=== PATIENT | male | born 2000 | race Caucasian/White ===

== ENCOUNTER 2020-04-12 14:02 | Emergency (ER) | payer OTHER ==
[~2020-04-12] VITALS: Ht 182.9 cm; Wt 106.6 kg
[~2020-04-12 14:02] MED LIST: GILTUSS; NAPR500T14 PO
[2020-04-12] MEDS ORDERED: ZITHROMAX500 MG PO ×2 (16:47→16:48)
[2020-04-12] MEDS ORDERED: TUSICOF CAPLET1 EACH PO ×2 (16:47→16:48)
== END 2020-04-12 17:31 | disposition home or self-care (01) ==
LOC: ER 14:02 → EMR PED 14:10
DX: R51.9 Headache, unspecified (principal); Z20.828 Contact with and (suspected) exposure to other viral communicable diseases

== ENCOUNTER 2020-04-20 09:25 | Day surgery (SDC) | payer OTHER ==
[~2020-04-20 09:25] MED LIST changes: +TUSICOF CAPLET1 EACH PO; +ZITHROMAX500 MG PO
== END 2020-04-20 20:49 | disposition home or self-care (01) ==
LOC: CIR.AMB 09:25
PROVIDERS: ATTEND Colon & Rectal Surgery
DX: K60.1 Chronic anal fissure (principal); Z20.828 Contact with and (suspected) exposure to other viral communicable diseases

== ENCOUNTER 2020-09-13 13:21 | Outpatient (CLI) | payer OTHER | END 2020-09-13 13:25 | disposition home or self-care (01) | LOC: RAD 13:21 | PROVIDERS: ATTEND Physical Medicine & Rehabilitation | DX: M54.5 Low back pain (principal); M54.6 Pain in thoracic spine ==

== ENCOUNTER 2021-02-16 10:04 | Emergency (ER) | payer OTHER ==
[~2021-02-16] VITALS: Ht 182.9 cm; Wt 111.1 kg
== END 2021-02-16 12:49 | disposition home or self-care (01) ==
LOC: ER 10:04 → EMR PED 10:04
DX: R50.9 Fever, unspecified (principal); Z03.818 Encounter for observation for suspected exposure to other biological agents ruled out

== ENCOUNTER 2021-02-20 12:01 | Emergency (ER) | payer OTHER ==
[~2021-02-20] VITALS: Ht 188 cm; Wt 111.1 kg
== END 2021-02-20 14:23 | disposition home or self-care (01) ==
LOC: EMR PED 12:01
DX: B00.2 Herpesviral gingivostomatitis and pharyngotonsillitis (principal); Z03.818 Encounter for observation for suspected exposure to other biological agents ruled out

== ENCOUNTER 2021-07-31 08:00 | Outpatient (CLI) | payer OTHER | END 2021-07-31 08:30 | disposition home or self-care (01) | LOC: PPH VACUNA 08:00 | PROVIDERS: ATTEND Emergency Medicine Pediatric Emergency Medicine | DX: Z23 Encounter for immunization (principal) ==

== ENCOUNTER 2022-07-21 00:13 | Emergency (ER) | payer OTHER ==
[~2022-07-21] VITALS: Ht 182.9 cm; Wt 109.8 kg
== END 2022-07-21 02:50 | disposition home or self-care (01) ==
LOC: ER 00:13
DX: K52.89 Other specified noninfective gastroenteritis and colitis (principal)

== ENCOUNTER 2023-02-18 09:30 | Emergency (ER) | payer OTHER ==
[~2023-02-18] VITALS: Ht 182.9 cm; Wt 120.2 kg
[2023-02-18] MEDS ORDERED: ZYRTEC10 M3 PO (11:34)
[2023-02-18] MEDS ORDERED: TUSNEL LIQUID178 ML PO (11:34)
[2023-02-18] MEDS ORDERED: DOLOGEN CAPLET1 EACH PO (11:34)
[2023-02-18] MEDS ORDERED: FLONASE16 GM NASAL (11:34)
== END 2023-02-18 11:43 | disposition home or self-care (01) ==
LOC: ER 09:30
PROVIDERS: General Practice
DX: J11.1 Influenza due to unidentified influenza virus with other respiratory manifestations (principal); Z20.822 Contact with and (suspected) exposure to COVID-19
CPT/HCPCS: 36415; 70210; 96372; 99283; J1100

== ENCOUNTER 2024-03-24 10:20 | Emergency (ER) | payer OTHER ==
[~2024-03-24] VITALS: Ht 185.4 cm; Wt 136.1 kg
[~2024-03-24 10:20] MED LIST changes: +DOLOGEN CAPLET1 EACH PO; +FLONASE16 GM NASAL; +TUSNEL LIQUID178 ML PO; +ZYRTEC10 M3 PO
[2024-03-24] MEDS ORDERED: KETOROLAC TROMETHAMINE 60 MG VIAL IM STA (13:00)
[2024-03-24] MEDS ORDERED: ORPHENADRINE CITRATE 30 MG/ML AMPUL IM STA (13:01)
== END 2024-03-24 15:21 | disposition home or self-care (01) ==
LOC: ER 10:22
DX: M54.50 Low back pain, unspecified (principal)

== ENCOUNTER 2024-05-13 14:38 | Emergency (ER) | payer OTHER ==
[~2024-05-13] VITALS: Ht 182.9 cm; Wt 136.1 kg
[2024-05-13 16:48] LABS: HEMATOCRIT 44.8 % (39.0-48.0); HEMOGLOBIN 15.5 g/dL (13-16.00); MEAN CELL VOLUME 78.1 fL (80.0-100.00); MEAN CORPUSCULAR HGB CONC 34.5 g/dl (32.0-36.0); PLATELET COUNT 270 K/uL (150-450); RED BLOOD COUNT 5.74 M/uL (4.00-6.00); RED CELL DISTRIBUTION WIDTH 13.9 % (11.5-14.5)
[2024-05-13 16:57] LABS: URINE APPEARANCE Clear; URINE BILIRRUBIN Negative (NEGATIVE); URINE BLOOD Negative; URINE COLOR Yellow; URINE GLUCOSE Negative (NEGATIVE); URINE KETONE Negative (NEGATIVE); URINE LEUKOCYTE Negative; URINE NITRATE Negative; URINE PROTEIN 30 (NEGATIVE)
[2024-05-13 16:58] LABS: URINE BACTERIA 8.5 uL (0.0-1933); URINE RBC 3.2 uL (0.0-20.8); URINE WBC 2.6 uL (0.0-23.2)
[2024-05-13 17:23] LABS: ALBUMIN 4.2 gm/dL (3.4-5.0); BILIRUBIN TOTAL 0.67 mg/dL (0.3-1.2); CALCIUM 9.3 mg/dL (8.5-10.1); CREATININE SERUM 0.98 mg/dL (0.70-1.30); GFR 94.78; GLOBULINA 3.6 G/DL (2.4-3.5); POTASSIUM 4.22 mEq/L (3.5-5.1); TOTAL PROTEIN 7.8 gm/dL (6.4-8.2)
[2024-05-13 17:29] LABS: URINE EPITHELIAL CELLS 0.7 uL (0.0-38.8)
== END 2024-05-13 18:13 | disposition home or self-care (01) ==
LOC: ER 14:40
PROVIDERS: General Practice
DX: R10.9 Unspecified abdominal pain (principal)

== ENCOUNTER → 2024-08-28 | Emergency (ER) | payer OTHER ==
[~2024-08-28] VITALS: Ht 182.9 cm; Wt 129.3 kg
== END | disposition left against medical advice (07) ==
LOC: ER 19:41
DX: Z53.21 Procedure and treatment not carried out due to patient leaving prior to being seen by health care provider (principal)

== ENCOUNTER 2024-12-08 10:49 | Outpatient (CLI) | payer OTHER | END 2024-12-08 10:54 | disposition home or self-care (01) | LOC: MRI 10:49 | PROVIDERS: ATTEND Physical Medicine & Rehabilitation | DX: M51.16 Intervertebral disc disorders with radiculopathy, lumbar region (principal); M54.51 Vertebrogenic low back pain; M99.53 Intervertebral disc stenosis of neural canal of lumbar region | CPT/HCPCS: 72148 ==

== ENCOUNTER 2025-05-18 18:19 | Emergency (ER) | payer OTHER ==
[~2025-05-18] VITALS: Ht 185.4 cm; Wt 129.3 kg
[2025-05-18] MEDS ORDERED: ORPHENADRINE CITRATE 30 MG/ML AMPUL IM ONE (21:30)
[2025-05-18] MEDS ORDERED: ACETAMINOPHEN 500 MG GEL..CAP PO ONE ×2 (21:30→21:57)
[2025-05-18] MEDS ORDERED: ORPHENADRINE CITRATE 30 MG/ML AMPUL ONE (21:57)
== END 2025-05-19 03:44 | disposition home or self-care (01) ==
LOC: ER 18:20
DX: M94.0 Chondrocostal junction syndrome [Tietze] (principal)